=== PATIENT | female | born 1980 | race Caucasian/White ===

== ENCOUNTER 2022-01-22 07:15 | Inpatient (IN) | payer BC ==
[~2022-01-22 07:15] MED LIST: Dexamethasone 4 MG/ML SDV ONE; Glycopyrrolate 0.2 MG/ML 5 ML MDV ONE; Lactated Ringers 1,000 ML ONE; Neostigmine Methylsulfate 1 MG/ML 5 ML Syringe ONE; Ondansetron 4 MG/2 ML SDV ONE; Propofol 200 MG/20 ML SDV ONE; Rocuronium 50 MG/5 ML Vial ONE; Succinylcholine 200 MG/10 ML MDV ONE; fentaNYL 250 MCG/5 ML SDV ONE
[2022-01-22] MEDS ORDERED: Scopolamine 1.5 MG Transdermal Patch TOP ONE (10:00)
[2022-01-22] MEDS ORDERED: Dextrose 5%-Lactated Ringers 1,000 ML IV SCH (10:00)
[2022-01-22] MEDS ORDERED: Celecoxib 200 MG Cap PO ONE (10:00)
[2022-01-22] MEDS ORDERED: cefOXitin 2 GM in Sodium Chloride 0.9% 50 ML IV ONE (10:00)
[2022-01-22] MEDS ORDERED: Acetaminophen 500 MG Tab PO ONE (10:00)
[2022-01-22] MEDS ORDERED: Diltiazem 180 MG Cap.CD PO ONE ×2 (10:45→11:05)
[2022-01-22] MEDS ORDERED: Ketamine 500 MG/5 ML MDV IV SCH (11:15)
[2022-01-22] MEDS ORDERED: Ketamine 17 MG in Sodium Chloride 0.9% 19.83 ML IV SCH (11:15)
[2022-01-22] MEDS ORDERED: cefOXitin 2 GM Vial ONE (12:40)
[2022-01-22] MEDS ORDERED: fentaNYL 250 MCG/5 ML SDV ONE (12:55)
[2022-01-22] MEDS ORDERED: Phenylephrine 1% 10 MG/ML SDV ONE (14:00)
[2022-01-22] MEDS ORDERED: fentaNYL 100 MCG/2 ML SDV ONE (14:08)
[2022-01-22] MEDS ORDERED: Rocuronium 50 MG/5 ML Vial ONE (14:08)
[2022-01-22] MEDS ORDERED: hydrOXYzine HCL 100 MG/2 ML SDV IM ONE (15:10)
[2022-01-22] MEDS ORDERED: oxyCODONE 5 MG Tab PO PRN (16:00)
[2022-01-22] MEDS ORDERED: HYDROmorphone 0.5 MG/0.5 ML Syringe IVPUSH PRN (16:00)
[2022-01-22] MEDS ORDERED: Acetaminophen 500 MG Tab PO PRN (16:00)
[2022-01-22] MEDS ORDERED: diphenhydrAMINE 50 MG/ML SDV IVPUSH PRN (16:00)
[2022-01-22] MEDS ORDERED: hydrOXYzine HCL 100 MG/2 ML SDV IM PRN (16:00)
[2022-01-22] MEDS ORDERED: Ondansetron 4 MG/2 ML SDV IVPUSH PRN (16:00)
[2022-01-22] MEDS ORDERED: Labetalol 20 MG/4 ML Syringe IVPUSH PRN (16:00)
[2022-01-22] MEDS ORDERED: HYDROmorphone 1 MG/ML Syringe IV PRN (16:00)
[2022-01-22] MEDS ORDERED: Metoclopramide 10 MG/2 ML SDV IVPUSH PRN (16:00)
[2022-01-22] MEDS ORDERED: Cyclobenzaprine 10 MG Tab PO PRN (16:04)
[2022-01-22] MEDS: cefOXitin 2 GM in Sodium Chloride 0.9% 50 ML IV SCH ×2 (17:14→23:15)
[2022-01-22] MEDS: Acetaminophen 500 MG Tab PO SCH ×2 (17:15→23:17)
[2022-01-22] MEDS: SCOPOLAMINE PATCH CHECK TOP SCH (17:20)
[2022-01-22] MEDS ORDERED: MVI, Adult with Vitamin K 10 ML, Thiamine 200 MG, Zinc/Copper/Manganese/Selenium 1 ML i... IV SCH ×4 (18:00)
[2022-01-22] MEDS ORDERED: Pantoprazole 40 MG Vial IVPUSH SCH (18:00)
[2022-01-22] MEDS: Heparin Sodium 5,000 Units/ML Vial SUBCUT SCH (20:18)
[2022-01-22] MEDS: Topiramate 100 MG Tab PO SCH (21:06)
[2022-01-22] MEDS: traMADol 50 MG Tab PO PRN (22:52)
[2022-01-22] MEDS: Dextrose 5%-Lactated Ringers 1,000 ML IV SCH (23:23)
[2022-01-23] MEDS ORDERED: Iopamidol 612 MG/ML 50 ML SDV PO ONE (02:15)
[2022-01-23] MEDS: Dextrose 5%-Lactated Ringers 1,000 ML IV SCH ×2 (05:40→12:26)
[2022-01-23] MEDS: cefOXitin 2 GM in Sodium Chloride 0.9% 50 ML IV SCH ×4 (05:41→23:37)
[2022-01-23] MEDS: Diltiazem IR 30 MG Tab PO SCH ×3 (06:00→21:12)
[2022-01-23] MEDS: Heparin Sodium 5,000 Units/ML Vial SUBCUT SCH ×2 (08:25→21:12)
[2022-01-23] MEDS: Acetaminophen 500 MG Tab PO SCH ×3 (08:25→23:36)
[2022-01-23] MEDS: Lisinopril 10 MG Tab PO SCH (08:26)
[2022-01-23] MEDS: SCOPOLAMINE PATCH CHECK TOP SCH (08:26)
[2022-01-23] MEDS: Celecoxib 200 MG Cap PO SCH ×2 (08:26→21:12)
[2022-01-23 10:28] LABS: HEMOGLOBIN A1C 5.3 % (4.5-6.2)
[2022-01-23] MEDS ORDERED: MVI, Adult with Vitamin K 10 ML, Thiamine 200 MG, Zinc/Copper/Manganese/Selenium 1 ML i... IV SCH ×4 (16:00)
[2022-01-23] MEDS: Pantoprazole 40 MG Delayed-Release Granules 1 Packet PO SCH (16:47)
[2022-01-23] MEDS: traMADol 50 MG Tab PO PRN (19:31)
[2022-01-23] MEDS ORDERED: Albuterol/Ipratropium 3.0-0.5 MG/3 ML Neb Soln NEB PRN (19:51)
[2022-01-23] MEDS: Topiramate 100 MG Tab PO SCH (21:12)
[2022-01-24] MEDS: Dextrose 5%-Lactated Ringers 1,000 ML IV SCH (02:55)
[2022-01-24] MEDS: traMADol 50 MG Tab PO PRN ×3 (05:44→19:25)
[2022-01-24] MEDS: Diltiazem IR 30 MG Tab PO SCH ×3 (05:45→21:23)
[2022-01-24] MEDS ORDERED: Sodium Chloride 0.9% 10 ML Syringe IV PRN (07:10)
[2022-01-24] MEDS: Acetaminophen 500 MG Tab PO SCH ×3 (07:55→23:53)
[2022-01-24] MEDS: Heparin Sodium 5,000 Units/ML Vial SUBCUT SCH ×2 (07:55→21:23)
[2022-01-24] MEDS: Bisacodyl 5 MG Tab PO SCH ×2 (08:02→21:23)
[2022-01-24] MEDS: Lisinopril 10 MG Tab PO SCH (08:02)
[2022-01-24] MEDS: Magnesium Hydroxide 400 MG/5 ML Susp 30 ML Cup PO SCH ×2 (08:02→21:23)
[2022-01-24] MEDS: Celecoxib 200 MG Cap PO SCH ×2 (08:03→21:23)
[2022-01-24] MEDS: SCOPOLAMINE PATCH CHECK TOP SCH (08:14)
[2022-01-24] MEDS ORDERED: Cyanocobalamin (Vitamin B12) 1,000 MCG/ML SDV IM ONE (09:00)
[2022-01-24] MEDS: Pantoprazole 40 MG Delayed-Release Granules 1 Packet PO SCH (15:36)
[2022-01-24] MEDS: Topiramate 100 MG Tab PO SCH (21:23)
[2022-01-25] MEDS: Diltiazem IR 30 MG Tab PO SCH (05:25)
[2022-01-25] MEDS: traMADol 50 MG Tab PO PRN ×2 (05:31→11:38)
[2022-01-25] MEDS: Heparin Sodium 5,000 Units/ML Vial SUBCUT SCH (07:18)
[2022-01-25] MEDS: Acetaminophen 500 MG Tab PO SCH (07:19)
[2022-01-25] MEDS: Celecoxib 200 MG Cap PO SCH (08:56)
[2022-01-25] MEDS: Lisinopril 10 MG Tab PO SCH (08:56)
[2022-01-25] MEDS: Magnesium Hydroxide 400 MG/5 ML Susp 30 ML Cup PO SCH (08:57)
[2022-01-25] MEDS: Bisacodyl 5 MG Tab PO SCH (08:57)
[2022-01-25] MEDS ORDERED: Magnesium Hydroxide 400 MG/5 ML Susp 30 ML Cup PO ONE (09:00)
== END 2022-01-25 14:16 | disposition home or self-care (01) | DRG 403 ==
LOC: EDSTATUS 07:15 → JP.SDSSCHI 09:40 → JP.SDS 09:40 → JP.MS 15:00
PROVIDERS: ADMIT Surgery; ATTEND Surgery
PROC: 0D164ZA Bypass Stomach to Jejunum, Percutaneous Endoscopic Approach (ICD-10-PCS; principal; 2022-01-22)
PROC: 0FB24ZX Excision of Left Lobe Liver, Percutaneous Endoscopic Approach, Diagnostic (ICD-10-PCS; 2022-01-22)
PROC: 0BQT4ZZ Repair Diaphragm, Percutaneous Endoscopic Approach (ICD-10-PCS; 2022-01-22)
DX: E66.01 Morbid (severe) obesity due to excess calories (principal); R16.0 Hepatomegaly, not elsewhere classified; K44.9 Diaphragmatic hernia without obstruction or gangrene; F32.A Depression, unspecified; F41.9 Anxiety disorder, unspecified; E78.5 Hyperlipidemia, unspecified; G47.33 Obstructive sleep apnea (adult) (pediatric); R73.02 Impaired glucose tolerance (oral); K21.9 Gastro-esophageal reflux disease without esophagitis; D50.9 Iron deficiency anemia, unspecified; I10 Essential (primary) hypertension; Z90.710 Acquired absence of both cervix and uterus; Z91.040 Latex allergy status; Z88.2 Allergy status to sulfonamides; Z88.0 Allergy status to penicillin; Z88.8 Allergy status to other drugs, medicaments and biological substances; Z68.38 Body mass index [BMI] 38.0-38.9, adult
CPT/HCPCS: 36415; 74240; 74240-26; 80053; 83036; 83735; 84100; 85027; 86850; 86900; 86901; A9270-GY; C9113; J0171; J0330; J0694; J1100; J1170; J1644; J2370; J2405; J2704; J2710; J2765; J2795; J3010; J3410; J3411; J3420; J3490; J7030; J7120; J7121; Q9967